=== PATIENT | female | born 1960 | race Caucasian/White ===

== ENCOUNTER 2021-02-03 11:50 | Emergency (ER) | payer MEDICARE, OTHER ==
[2021-02-03 12:55] LABS: HEMOGLOBIN 14.3 gm/dl (12.3-15.3); RED BLOOD COUNT 4.49 M/UL (4.00-5.10); WHITE BLOOD COUNT 8.6 K/UL (4.5-11.0)
[2021-02-03 13:22] LABS: BUN/CREATININE RATIO 20 (0-10)
[2021-02-03] MEDS ORDERED: HYDROCODON-ACE1 EAC4 PO (15:01)
[2021-02-03] MEDS ORDERED: CEFPODOXIME PR200 MG PO (15:01)
== END 2021-02-03 15:30 | disposition home or self-care (01) ==
LOC: ER1 11:50
PROVIDERS: Student in an Organized Health Care Education/Training Program
DX: N39.0 Urinary tract infection, site not specified (principal); Z88.0 Allergy status to penicillin; Z88.1 Allergy status to other antibiotic agents; Z88.8 Allergy status to other drugs, medicaments and biological substances; Z88.6 Allergy status to analgesic agent
CPT/HCPCS: 80053; 81001; 82550; 82553; 83874; 84484; 85025; 96374; 96375; 99284; J0696; J2270; J2405

== ENCOUNTER 2021-02-28 16:07 | Emergency (ER) | payer MEDICARE, OTHER ==
[~2021-02-28 16:07] MED LIST: CEFPODOXIME PR200 MG PO; HYDROCODON-ACE1 EAC4 PO
== END 2021-02-28 23:28 | disposition left against medical advice (07) ==
LOC: ER1 16:07
DX: Z53.21 Procedure and treatment not carried out due to patient leaving prior to being seen by health care provider (principal)

== ENCOUNTER 2021-08-02 12:56 | Inpatient (IN) | payer MEDICARE, OTHER ==
[~2021-08-02] VITALS: Ht 160 cm; Wt 69.4 kg
[2021-08-02 13:40] LABS: HEMOGLOBIN 14.5 gm/dl (12.3-15.3); RED BLOOD COUNT 4.65 M/UL (4.00-5.10); WHITE BLOOD COUNT 6.1 K/UL (4.5-11.0)
[2021-08-02 14:01] LABS: BUN/CREATININE RATIO 13 (0-10)
[2021-08-02] MEDS ORDERED: PHENERGAN 25 MG25 M1 PO (18:24)
[2021-08-02] MEDS ORDERED: MACROBID 100 M100 M1 PO (18:24)
[2021-08-02] MEDS ORDERED: PROAIR HFA8.5 GM INH (18:25)
[2021-08-02] MEDS ORDERED: OXYCODONE HCL10 MG PO (18:25)
[2021-08-02] MEDS ORDERED: LEVOTHYROXINE200 MC1 PO (18:25)
[2021-08-02] MEDS ORDERED: ONDANSETRON HCL4 MG PO (18:26)
[2021-08-02] MEDS ORDERED: LEVOTHYROXINE50 MCG PO (18:26)
[2021-08-02] MEDS ORDERED: XARELTO10 MG PO (18:27)
[2021-08-02] MEDS ORDERED: TIZANIDINE HCL4 MG PO (18:27)
[2021-08-02] MEDS ORDERED: NITROGLYCERIN0.4 MG SL (18:27)
[2021-08-03 04:28] LABS: WHITE BLOOD COUNT 4.9 K/UL (4.5-11.0)
[2021-08-03 04:35] LABS: HEMOGLOBIN 12.5 gm/dl (12.3-15.3); RED BLOOD COUNT 4.1 M/UL (4.00-5.10)
[2021-08-03 04:46] LABS: BUN/CREATININE RATIO 16 (0-10)
== END 2021-08-04 12:00 | disposition home or self-care (01) | DRG 690 ==
LOC: ER1 12:56 → ZEROF 17:48 → CDU 17:48 → 3 EAST 08-03 21:50
PROVIDERS: Emergency Medicine; ADMIT Internal Medicine
DX: N30.00 Acute cystitis without hematuria (principal); B96.4 Proteus (mirabilis) (morganii) as the cause of diseases classified elsewhere; Z20.822 Contact with and (suspected) exposure to COVID-19; E03.9 Hypothyroidism, unspecified; M06.9 Rheumatoid arthritis, unspecified; M32.9 Systemic lupus erythematosus, unspecified; N20.0 Calculus of kidney; Z88.1 Allergy status to other antibiotic agents; Z88.6 Allergy status to analgesic agent; Z88.0 Allergy status to penicillin; Z88.8 Allergy status to other drugs, medicaments and biological substances; Z80.0 Family history of malignant neoplasm of digestive organs
CPT/HCPCS: 80048; 80053; 81001; 83690; 83735; 85025; 87040; 87077; 87086; 87186; 96374; 96375; 96376; 99285; J2185; J2270; J2405